=== PATIENT | female | born 1990 | race Caucasian/White ===

== ENCOUNTER 2017-07-23 10:14 | Emergency (ER) | payer OTHER ==
[2017-07-23 10:25] VITALS: BP 120/79; PULSE 96; TEMP 98.3; BMI 29.2
--- NOTE | 2017-07-23 10:57 | PDOC ---
History of Present Illness - General Chief Complaint: Pain, Acute Stated Complaint: ABD PAIN (11 WKS ) Time Seen by Provider: 07/23/17 10:33 Past History - Past Medical History Allergies/Adverse Reactions: Allergies Allergy/AdvReac Type Severity Reaction Status Date / Time peanut Allergy Severe Swelling Verified 07/23/17 10:21 legumes Allergy Intermediate Rash Verified 07/23/17 10:21 cephalexin monohydrate Allergy Mild Itching Verified 07/23/17 10:21 [From Keflex] lactose Allergy Unknown Verified 07/23/17 10:21 latex Allergy Unknown Rash Verified 07/23/17 10:21 msg Allergy Uncoded 07/23/17 10:22 Home Medications: Ambulatory Orders Methadone [Dolophine -] 160 mg PO DAILY 07/31/15 Albuterol 0.083% Nebulizer Eleni [Ventolin 0.083%] 1 neb NEB PRN PRN 02/14/16 Clonazepam [Klonopin] 1 mg PO QID MDD 3 07/20/16 Anemia: No Asthma: Yes Cancer: No Cardiac Disorders: No CVA: No COPD: No CHF: No DVT: No Dementia: No Diabetes: No GI Disorders: No Disorders: No HTN: No Hypercholesterolemia: No Kidney Stones: No Liver Disease: Yes (HEP C) Seizures: Yes (2007) Thyroid Disease: No Other medical history: ivda heroin, coccain , 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 - Surgical History Abdominal Surgery: No Appendectomy: No Cardiac Surgery: No Cholecystectomy: No Lung Surgery: No Neurologic Surgery: No Orthopedic Surgery: No - Reproductive History PID: No - Immunization History Td Vaccination: Yes Immunization Up to Date: Yes - Suicide/Smoking/Psychosocial Hx Smoking Status: Yes Smoking History: Current every day smoker Years of Tobacco Use: 11 Have you smoked in the past 12 months: Yes Number of Cigarettes Smoked Daily: 3 Information on smoking cessation initiated: Yes 'Breaking Loose' booklet given: 07/23/17 Hx Alcohol Use: No Drug/Substance Use Hx: Yes Substance Use Type: Cocaine, Heroin, Opiates Hx Substance Use Treatment: Yes *Physical Exam - Vital Signs Last Vital Signs Temp Pulse Resp BP Pulse Ox 98.3 F 96 H 18 120/79 100 07/23/17 10:22 07/23/17 10:22 07/23/17 10:22 07/23/17 10:22 07/23/17 10:22 ED Treatment Course - LABORATORY CBC & Chemistry Diagram: 07/23/17 11:01 07/23/17 11:01 *DC/Admit/Observation/Transfer Diagnosis at time of Disposition: 11 weeks gestation of - Discharge Dispostion Disposition: HOME Condition at time of disposition: Good Admit: No - Referrals Referrals: Daily Frye MD [Staff Physician] - Niko Adams MD [Staff Physician] - - Patient Instructions Printed Discharge Instructions: DI for Abdominal Pain -- Early Additional Instructions: Your currently 11 weeks . There was a heart rate of 171 for the baby seen on ultrasound today. You may take Tylenol as needed for pain not to exceed 4000 mg a day. It is normal to experience some back pain as the baby is growing. You may use heat to help with her symptoms. Please follow-up with one of the attached [employer] to further manage her care. You will need an ultrasound at 12 weeks to evaluate the further. Return to the emergency department if you have any vaginal bleeding, spotting, worsening abdominal pain, fevers, chills or any changes in your symptoms. - Post Discharge Activity
[2017-07-23] MEDS ORDERED: ONDANSETRON *ODT* 4 MG TABLET SL ONE (10:59)
[2017-07-23] MEDS ORDERED: ACETAMINOPHEN 325 MG TABLET (FP) PO ONE (10:59)
[2017-07-23] MEDS ORDERED: ONDANSETRON *ODT* 4 MG TABLET ONE (11:13)
[2017-07-23] MEDS ORDERED: ACETAMINOPHEN 325 MG TABLET (FP) ONE (11:13)
[2017-07-23 11:32] LABS: BASOPHIL 0.6 % (0-2.0); EOSINOPHIL 2.7 % (0-4.5); MCH 30.3 pg (25.7-33.7); MCHC 34.1 g/dl (32.0-36.0); MEAN PLT VOLUME 8.1 fl (7.5-11.1); NEUTROPHILS 69.8 % (42.8-82.8); PLATELET COUNT 241 K/MM3 (134-434); RDW 12.8 % (11.6-15.6); WHITE BLOOD COUNT 6.4 K/mm3 (4.0-10.0)
[2017-07-23 11:33] LABS: URINE APPEARANCE CLOUDY; URINE BILIRUBIN NEGATIVE (NEGATIVE); URINE BLOOD NEGATIVE (NEGATIVE); URINE COLOR YELLOW; URINE GLUCOSE (UA) NEGATIVE (NEGATIVE); URINE KETONE NEGATIVE (NEGATIVE); URINE LEUK ESTERASE TRACE (NEGATIVE); URINE NITRITE NEGATIVE (NEGATIVE); URINE PROTEIN NEGATIVE (NEGATIVE); URINE UROBILINOGEN NEGATIVE mg/dL (0.2-1.0)
[2017-07-23 11:53] LABS: URINE MUCUS RARE; URINE RBC 2 /hpf (0-3); URINE WBC 1 /hpf (3-5)
[2017-07-23 12:06] LABS: ALBUMIN 3.7 g/dl (3.4-5.0); ANION GAP 8 (8-16); BILIRUBIN,TOTAL 0.3 mg/dL (0.2-1.0); CALCIUM 8.7 mg/dL (8.5-10.1); CO2 23 mmol/L (21-32); CREATININE 0.6 mg/dL (0.55-1.02); GLUCOSE,RANDOM 102 mg/dL (74-106); SGOT/AST 8 U/L (15-37); SGPT/ALT 16 U/L (12-78); TOT PROT 7.3 g/dl (6.4-8.2)
[2017-07-23 12:22] LABS: ALK PHOS 50 U/L (45-117)
[2017-07-23 14:23] LABS: URINE LEUK ESTERASE Negative (NEGATIVE)
== END 2017-07-23 12:59 | disposition home or self-care (01) ==
LOC: JER 10:14
DX: O26.891 Other specified pregnancy related conditions, first trimester (principal); Z3A.11 11 weeks gestation of pregnancy; R10.9 Unspecified abdominal pain; F17.210 Nicotine dependence, cigarettes, uncomplicated; J45.909 Unspecified asthma, uncomplicated; B19.20 Unspecified viral hepatitis C without hepatic coma
CPT/HCPCS: 36415; 76801-TC; 80053; 81003; 81015; 84702; 85025; 87086; 99282-25